=== PATIENT | female | born 1940 | race Caucasian/White ===

== ENCOUNTER 2022-08-17 12:14 | Outpatient (CLI) | payer MEDICARE, BC | END 2022-08-17 12:15 | disposition home or self-care (01) | LOC: ULT 12:14 | PROVIDERS: ATTEND Internal Medicine | DX: R22.32 Localized swelling, mass and lump, left upper limb (principal) | CPT/HCPCS: 76999 ==

== ENCOUNTER 2023-08-08 10:29 | Outpatient (CLI) | payer MEDICARE | END 2023-08-08 10:30 | disposition home or self-care (01) | LOC: BICMAMMO 10:29 | PROVIDERS: ATTEND Internal Medicine | DX: M81.0 Age-related osteoporosis without current pathological fracture (principal); M85.89 Other specified disorders of bone density and structure, multiple sites | CPT/HCPCS: 77080 ==